=== PATIENT | female | born 1990 | race Caucasian/White ===

== ENCOUNTER 2019-10-06 17:36 | Emergency (ER) | payer MEDICAID ==
[~2019-10-06] VITALS: Ht 165.1 cm; Wt 89.1 kg
[2019-10-06 18:00] VITALS: BP 128/82
[2019-10-06] MEDS ORDERED: ONDA4TAB12 PO (19:04)
[2019-10-06] MEDS ORDERED: ondansetron 4mg rapidly disintigrating tab PO ONE (19:05)
== END 2019-10-06 19:27 | disposition home or self-care (01) ==
LOC: ER 17:37
DX: H60.502 Unspecified acute noninfective otitis externa, left ear (principal); H92.02 Otalgia, left ear; R11.0 Nausea; Z79.899 Other long term (current) drug therapy
CPT/HCPCS: 99283

== ENCOUNTER 2019-11-09 15:20 | Emergency (ER) | payer MEDICAID ==
[~2019-11-09] VITALS: Ht 162.6 cm; Wt 95.5 kg
[~2019-11-09 15:20] MED LIST: ONDA4TAB12 PO
[2019-11-09 15:40] VITALS: BP 134/94
[2019-11-09] MEDS ORDERED: PENI500T2 PO (16:29)
== END 2019-11-09 16:49 | disposition home or self-care (01) ==
LOC: ER 15:21
DX: K08.89 Other specified disorders of teeth and supporting structures (principal); Z79.899 Other long term (current) drug therapy
CPT/HCPCS: 99283

== ENCOUNTER → 2023-05-30 | Outpatient (CLI) | payer MEDICAID ==
[2023-05-30] VITALS (14 sets, daily range): BP systolic 105–125; BP diastolic 46–81; PULSE 72–107
== END | disposition home or self-care (01) ==
LOC: CARD DIAG 01:44
PROVIDERS: ATTEND Nurse Practitioner Family
DX: I95.1 Orthostatic hypotension (principal)
CPT/HCPCS: 93660